=== PATIENT | male | born 1990 | race Caucasian/White ===

== ENCOUNTER 2024-05-20 22:39 | Emergency (ER) | payer BC, SELFPAY ==
[2024-05-20 22:40] VITALS: BP 153/91; PULSE 92; RESP 16; TEMP 36.9; O2SAT 100; BMI 30.4
--- NOTE | 2024-05-20 22:52 | ED.VIS.LOWEX ---
HPI History of Present Illness Chief Complaint: Lower Extremity Injury Narrative Narrative: 43-year-old male who denies significant past medical history presents with injury to his left knee that he sustained about an hour ago. He states he was playing basketball, went up for a rebound, and felt like someone had kicked him in the knee. He felt a pop in his left knee. He does not really have any pain, but he noticed that his left patellar was high riding. It is difficult for him to move his leg/lower leg. He denies any other injury. PFSH PFSH Home Medications ?Medication ?Instructions ?Recorded ?Last Taken ?Type oxycodone 5 mg tablet 5 mg PO Q6H PRN pain 3 days #12 05/20/24 Unknown Rx tabs Allergy/AdvReac Type Severity Reaction Status Date / Time amoxicillin Allergy Mild RASH Verified 05/20/24 22:43 Social History Smoking Status: Never smoker ROS ROS ED ROS Narrative Review of systems positive for difficulty moving left lower extremity, left knee pain, described high riding patella. No other injury. Minimal amount of pain except for when trying to move leg. EXAM Physical Exam Narrative Exam Narrative: GCS 15. ABCs intact. Focused physical examination shows examination of the left knee has a high riding patella. There is a palpable deficit distal to it. He is neurovascular intact distally with palpable dorsalis pedis pulse. No crepitance. Unable to lift leg directly off bed without using hands. Const Vital Signs: 05/20/24 22:40 05/20/24 23:28 Temperature 98.4 F 98.0 F Temperature Source Temporal Pulse Rate 92 82 Respiratory Rate 16 16 Blood Pressure 153/91 H 131/85 H Blood Pressure Mean 111 100 Pulse Ox 100 99 Oxygen Delivery Method Room Air MDM MDM MDM Narrative Medical decision making narrative: Differential diagnosis includes but not limited to patellar tendon rupture versus tibial plateau fracture versus quadriceps tendon rupture. Based on his history and physical I highly favor patellar tendon rupture. Patient was given oxycodone here and x-rays obtained of the left knee in 4 views. On my individual interpretation, there is no evidence of acute fracture, there is a high riding patella. This is high suspicion for a patellar tendon rupture. I reviewed the radiology report which confirms my independent interpretation. He was placed in a knee immobilizer and given crutches. He states that he might follow-up with an orthopedic surgeon at [facility] but he was referred to [facility] as well. Given his acute injury of patellar tendon rupture, I stressed the importance of close follow-up with orthopedics. He is to call the office tomorrow for an appointment. He was written a prescription for 3 days of oxycodone as well. He and his were told of the probable need for surgical intervention. Return instructions to the emergency department were reviewed. Disposition is discharged home in stable condition. History & Record Review Discussion w/independent historian: Patient and Family Radiography Diagnostic Testing: Clinical Impression(s) from Imaging Studies Knee X-Ray 05/20/24 23:10 IMPRESSION: Findings likely indicating patellar tendon rupture. Electronically Signed: Guido Reyes MD at 23:49 EST , Discharge Plan Triage Chief Complaint: Lower Extremity Injury ED Provider: Tutu Walters Dx/Rx/DC Orders Clinical Impression: Patellar tendon rupture, Injury of knee, left Instructions: ED Quadriceps Tendon Rupture Prescriptions: New oxycodone 5 mg tablet 5 mg PO Q6H PRN (Reason: pain) 3 Days Qty: 12 0RF Primary Care Provider: Altaf Colin Referrals: Altaf Colin MD [Primary Care Provider] - Kody Woods DO [Med Staff - Active Staff] - 1 Day Activity Restrictions/Additional Instructions: Call all orthopedics for close follow-up. Call tomorrow for an appointment for patellar tendon rupture. Print Language: Estonian Disposition Disposition: Home, Self Care Discharge Date/Time: 05/20/24 23:41
--- NOTE | 2024-05-20 23:10 | RAD_ITS ---
EXAM: XR LEFT KNEE COMPLETE, 4 OR MORE VIEWS CLINICAL INDICATION: trauma TECHNIQUE: Four or more views of the left knee. COMPARISON: No relevant prior studies available. FINDINGS: BONES/JOINTS: No acute fracture. Superior displacement of the patella. Preservation of the joint space. No sclerotic or destructive changes observed. SOFT TISSUES: Abnormal soft tissue thickening in the expected location of the patellar tendon. No radiopaque foreign body. RAD/Knee 4 or More Views IMPRESSION: Findings likely indicating patellar tendon rupture. Electronically Signed: Guido Reyes MD at 23:49 EST ,
[2024-05-20 23:28] VITALS: BP 131/85; PULSE 82; RESP 16; TEMP 36.7; O2SAT 99
[2024-05-20] MEDS: oxyCODONE 5 MG Tablet PO (23:28)
== END 2024-05-20 23:41 | disposition home or self-care (01) ==
PROVIDERS: Emergency Provider Emergency Medicine; PCP Family Medicine; Visit Provider Emergency Medicine
DX: S86.812A Strain of other muscle(s) and tendon(s) at lower leg level, left leg, initial encounter (principal); W50.1XXA Accidental kick by another person, initial encounter; Y93.67 Activity, basketball; Y92.310 Basketball court as the place of occurrence of the external cause
CPT/HCPCS: 73564; 99284